=== PATIENT | male | born 1955 | race Caucasian/White ===

== ENCOUNTER 2016-08-26 13:16 | Day surgery (SDC) | payer MEDICARE, OTHER ==
[~2016-08-26 13:16] MED LIST: BIAXIN500 M2 PO; BYSTOLIC10 M1 PO; CARDURA4 M1 PO; CENTRUM SILVER1 EAC3 PO; CLOBETASOL PROP15 G2 TP; FLUCONAZOLE150 M2 PO; GENTAMICIN SULF15 GM TP; LASIX40 M1 PO; MELATONIN5 M5 PO; MIRALAX17 G2 PO; NIZORAL120 M1 TP; NORVASC10 M2 PO; TRIAMCINOLONE A15 G2 TP; TYLENOL EXTRA500 M1 PO; VITAMIN C1000 M1 PO; VITAMIN D250000 UNI1 PO; VITAMIN D32000 UNI3 PO; ZEBETA10 M1 PO; ZYRTEC10 M7 PO; [UNRECOGNIZED DRUG - OTHER] PO
== END 2016-08-26 17:00 ==
LOC: SHSA 13:16
PROC: 037C3ZZ Dilation of Left Radial Artery, Percutaneous Approach (ICD-10-PCS; principal; 2016-08-26)
DX: T82.858A Stenosis of other vascular prosthetic devices, implants and grafts, initial encounter (principal); Z88.0 Allergy status to penicillin; Z88.1 Allergy status to other antibiotic agents; Y83.8 Other surgical procedures as the cause of abnormal reaction of the patient, or of later complication, without mention of misadventure at the time of the procedure; Z98.890 Other specified postprocedural states
CPT/HCPCS: C1769; C1887; J1644; J2250; J3010; Q9967